=== PATIENT | male | born 1995 | race African-American/Black ===

== ENCOUNTER 2022-01-06 18:53 | Emergency (ER) | payer OTHER ==
[~2022-01-06] VITALS: Ht 185.4 cm; Wt 127.0 kg
[2022-01-06] MEDS ORDERED: FLUORESCEIN SODIUM 1 STRIP STRIP ONE (20:51)
[2022-01-06] MEDS ORDERED: TETRACAINE HCL 0.5% 4 ML OPHTH SOLN ONE (20:51)
[2022-01-06] MEDS ORDERED: TETRACAINE HCL 0.5% 4 ML OPHTH SOLN OP SCH (21:00)
[2022-01-06] MEDS ORDERED: FLUORESCEIN SODIUM 1 STRIP STRIP OP SCH (21:00)
[2022-01-06] MEDS ORDERED: ERYTHROMYCIN BASE 0.5% OPHTH OINT 1 GM TUBE OU SCH (22:00)
[2022-01-06] MEDS ORDERED: NA BORATE/BORIC AC/H2O/NACL 120 ML OPHTH IRRIG SOLN ONE (22:08)
[2022-01-06 22:25] VITALS: BP 132/72
== END 2022-01-06 22:38 | disposition home or self-care (01) ==
LOC: EDH 18:53
DX: H10.9 Unspecified conjunctivitis (principal); F17.210 Nicotine dependence, cigarettes, uncomplicated; Z88.0 Allergy status to penicillin
CPT/HCPCS: 87070; 87077; 87186